=== PATIENT | female | born 1955 | race Caucasian/White ===

== ENCOUNTER → 2019-05-19 | Outpatient (CLI) | payer BC ==
[~2019-05-19] MED LIST: CALC1TAB PO; DICL100G18 TP; IOHEXOL 180 MG/ML 10 ML VIAL. ONE; MULT1TAB52 PO; NAPR-514 PO; hormone replacement; methylPREDNISolone ACETATE 40 MG/ML VIAL. ONE; methylPREDNISolone ACETATE 80 MG/ML VIAL. ONE
--- NOTE | 2019-05-19 16:57 | PAIN ---
DATE OF SERVICE: 05/19/2019 INITIAL CONSULTATION FOR PAIN CLINIC CHIEF COMPLAINT: Neck and right upper extremity pain. HISTORY OF PRESENT ILLNESS: This is a 63-year-old female who presents with history of pain in the base of the neck and right shoulder for many years, but worse over the past 1 year, without any specific injury or action that she is aware of. The pain is radiating to the base of the neck, right shoulder superiorly, into the right arm, into the anterior deltoid, into the bicep, into the forearm with some tingling in the hand and fingers on the right side only. The patient reports no left-sided symptoms. Describes the pain on the right in the neck, it is sharp, stabbing pain, gets worse at night, has been awakening her from sleep at least once or twice a night, does not affect her bowel or bladder control or ability to walk, but it is worse with walking faster or swinging her arm, reaching above her head with her right arm with right hand and with weightbearing and repetitive motions on the right side, even driving a car. The patient reports she has tried Voltaren gel on the base of the neck and shoulder and it does help by about 20%. She has not had any formal physical therapies, chiropractic treatments, or other modalities at this time. The patient did have MRI scan of cervical spine showing at C5-C6 a large circumferential bulging annulus with effacement of ventral thecal sac and abutment of the cord. C6-C7 shows bulging annulus and osteophytes with effacement of ventral thecal sac and abutment of the cord as well. The patient reports a disability rating from 0-10, 10 being the worst; it is a 0 with family home responsibilities, recreation, social activity, sexual behavior, occupation; 2 with self-care activities; 1 with life support activities. The patient reports no loss of motor function, but significant fatigability in the right shoulder with spiky pain on the right side with repetitive motion and activity. PAST MEDICAL HISTORY: Significant for arthritis in the right hip and left knee and hands. PREVIOUS SURGERIES: Include LASIK procedure in 1999, right hip replaced, left knee surgery, tonsillectomy as a child. CURRENT MEDICATIONS: Include multivitamins, naproxen, calcium, Voltaren gel, and hormone replacement. ALLERGIES: The patient has no known drug allergies. FAMILY HISTORY: Significant for kidney failure in the patient's father, also multiple myeloma, and heart attack in the patient's mother. SOCIAL HISTORY: The patient drinks alcohol about 1 drink a week. Does not smoke. Does not use any illegal, illicit, or recreational drugs. She is , lives with her spouse, lives locally and reports that she is currently retired. REVIEW OF SYSTEMS: The patient's review of systems is positive for those items mentioned in history of present illness. All systems reviewed and otherwise negative. It is complete, full and well documented on the patient's chart. PHYSICAL EXAMINATION: VITAL SIGNS: The patient's blood pressure is 133/86, pulse 66, respirations 18, temperature 98.4 degrees Fahrenheit, height is 6 feet, weight is 197 pounds. GENERAL: The patient is awake, alert, oriented, appropriate, very pleasant demeanor. The patient is accompanied by her spouse. HEENT: Shows normocephalic, atraumatic. Extraocular movements are intact and symmetrical. Oral cavity: Mucous membranes moist and pink. Dentition is intact. NECK: Shows anterior throat supple without palpable lymphadenopathy noted. Swallow reflex symmetrical. CHEST: Shows normal on inspection. Breath sounds clear to auscultation bilaterally. HEART: Shows S1, S2 clear. No murmurs auscultated. ABDOMEN: Soft, nontender, nondistended. No palpable organomegaly is noted. No rebound or guarding demonstrated. BACK: Shows spine grossly in the midline. Normal-appearing cervical lordotic curvature, thoracic kyphotic curvature, and lumbar lordotic curvature. Cervical paraspinous muscle shows symmetrical on inspection, on palpation shows some mild tenderness diffusely in the middle and lower distribution of the cervical paraspinous musculature, also into the superior medial aspect of the right trapezius, but without trigger points, without atrophy, hypertrophy. She has good rotational motion of cervical spine with some minor pain with far right lateral rotation past 45 degrees, but is performed in full extension, full forward flexion performed without difficulty or pain reported. EXTREMITIES: The patient's upper extremities show deep tendon reflexes 2+ in the biceps and triceps tendons. Motor exam is strong with casket liner strength rated at 5/5 as is bicep and tricep flexion equal and symmetrical. Peripheral pulses are 2+ radial distribution. No peripheral edema is noted. Shoulder shrug is strong and intact without loss of strength on resistance with some minor pain reported in the right base of the neck and shoulder, but not the left. This is too with abduction of the shoulder to 90 degrees without loss of strength on resistance with minor pain in the right neck and shoulder. SKIN: Shows warm and dry, good turgor. No edema. No sores, rashes, or bruising throughout. IMPRESSION: 1. This is a 63-year-old female with approximately 1-year history of increasing pain in base of the neck, right upper extremity in a radicular fashion. 2. MRI scan of cervical spine as noted. 3. History of arthritis. PLAN: Options were discussed with the patient and the patient's spouse including conservative medical managements, physical therapies, and interventional techniques. She would like to pursue interventional techniques. We discussed a cervical epidural steroid injection using descriptions as well as anatomical models to describe the procedure. Risks were then discussed including, but not limited to bleeding, infection, possibility of epidural hematoma and subsequent neurological compromise, dural puncture, headaches, spinal cord and/or nerve damage, side effects of steroid medication and poor results regarding pain control. The patient understands and wished to proceed. The patient will return to clinic in approximately 2 weeks for followup. She was counseled on return appointment, activity level, and side effects to be aware of. DIAGNOSIS: Cervical radiculopathy with cervical degenerative disk disease. PROCEDURE: Cervical epidural steroid injection, translaminar approach C6-C7 level using C-arm fluoroscopic guidance under sterile prep and drape using local anesthetic. MEDICATION INJECTED: A total of 120 mg Depo-Medrol plus a total of 5 mL of preservative-free normal saline and 2 mL of contrast. CONDITION AT DISCHARGE: Stable. The patient tolerated procedure well, had no complications. KAYODE SALDAÑA MD DR: EDGAR/shahida JOB#: [id number] / [id number] Beverley Pace MD
== END ==
LOC: PNCL 08:49
PROVIDERS: ATTEND Anesthesiology
DX: M50.123 Cervical disc disorder at C6-C7 level with radiculopathy (principal); Z98.890 Other specified postprocedural states; Z96.652 Presence of left artificial knee joint; Z96.641 Presence of right artificial hip joint; Z72.89 Other problems related to lifestyle
CPT/HCPCS: 62321; J1030; J1040; Q9965